=== PATIENT | female | born 1945 | race Caucasian/White ===

== ENCOUNTER 2019-07-30 02:16 | Inpatient (IN) | payer MEDICARE, OTHER ==
[~2019-07-30] VITALS: Ht 165.1 cm; Wt 69.6 kg
--- NOTE | ~2019-07-30 | HEMODYNAMI ---
PATIENT:GIOVANNY BERNAL MEDICAL RECORD: [id number] : 45 LOCATION:[facility].2120 ADMISSION DATE: 07/30/19 Generatedon:08/01/201910:05 Patient name: GIOVANNY BERNAL Patient #: [id number] SSN: [id number] : 1945 Date of study: 08/01/2019 Page: Of Hemodynamic Procedure Report Patient Data Patient Demographics Procedure consent was obtained First Name: GIOVANNY Gender: Female Last Name: GABE : 1945 Middle Initial: M Age: 74 year(s) Patient #: [id number] Race: SSN: [id number] Additional ID: [id number] Contact details [address]: [address] [place] [address] State: [place] City: [place] Zip code: [address] Past Medical History History of disease Date Diagnosis Comments CAD Allergies: No known allergies Admission Admission Data Admission Date: 07/30/2019 Admission Time: 19:54 Room #: D.2120 Height (in.): 64.96 BSA: 1.75 (m2) Height (cm.): 165 BMI: 24.98 (kg/m2) Weight (lbs.): 149.92 Weight (kg.): 68 Lab Results Lab Result Date: 08/01/2019 Lab Result Time: 0:00 Biochemistry Name Units Result Min Max BUN mg/dl 12 --(-*--)-- 7 18 Creatinine mg/dl 0.9 --(-*--)-- 0.6 1.3 eGFR ml/min 64.57184 *-(----)-- 90 120 NONAFRICAN CBC Name Units Result Min Max Hematocrit % 44 --(*---)-- 42 54 Hemoglobin g/dl 14.3 --(*---)-- 13.5 17.5 Procedure Procedure Types Cath Procedure Diagnostic Procedure LHC [facility] w/Coronaries Sedation Charges Moderate Sedation up to 15 minutes Procedure Description Procedure Date Procedure Date: 08/01/2019 Procedure Start Time: 9:51 Procedure End Time: 10:02 Procedure Staff Name Function Alok Olmos MD Performing Physician Farrah Milian RT Monitor Lisa Chappell RT Scrub Mirian Kyle RN Nurse Procedure Data Cath Procedure Fluoroscopy Diagnostic fluoroscopy Total fluoroscopy Time: 1.5 time: 1.5 min min Diagnostic fluoroscopy Total fluoroscopy dose: 327 dose: 327 mGy mGy Contrast Material Contrast Material Type Amount (ml) Isovue 300 62 Entry Location Entry Primary Successful Side Size Upsize Upsize Entry Closure Succes sful Closure Location (Fr) 1 (Fr) 2 (Fr) Remarks Device Remarks Femoral Right 5 Fr Exoseal artery Estimated blood loss: 10 ml Diagnostic catheters Device Type Used For End Catheter Placement MULTIPACK JL 4.0 5Fr Procedure catheter MULTIPACK 3DRC 5Fr Procedure catheter MULTIPACK Pigtail 5 Fr Ventriculography catheter Procedure Complications No complications Procedure Medications Medication Administration Route Dosage 0.9% NaCl I.V. 100 ml/hr Oxygen etCO2 Nasal cannula 2 l/min Lidocaine 2% added to field 20 Heparin Flush Bag added to field 2 bags (1000units/500ml NS) Versed I.V. 2 mg Fentanyl I.V. 50 mcg Fentanyl I.V. 50 mcg Hemodynamics Rest BSA: 1.75 (m2) HGB: 14.3 (g/dl) O2 Consumption: Estimated: 156.32 (ml/min) O2 Co nsumption indexed: Estimated:89.33 (ml/min/m) Heart Rate: 65 (bpm) Pressure Samples Time Site Value (mmHg) Purpose Heart Use Rate(bpm) 9:59 LV 146/-2,8 Snapshot 67 10:00 AO 141/48(87) Pullback 63 10:00 LV 154/-5,7 Pullback 63 Gradients Valve Time Site 1 Site 2 Mean SEP/DFP Peak To Heart Use (mmHg) (sec/min) Peak Rate (mmHg) (bpm) Aortic 10:00 LV AO 14 20 13 63 154/-5,7 141/48(87) Calculations Valve P-P Mean Valve Index Valve Source Name Gradient Area Flow (cm2) Aortic 13 14 13 14 Snapshots Pre Cath Intra NCS Post Cath Vital Signs Time Heart Resp SPO2 etCO2 NIBP (mmHg) Rhythm Pain Sedation Rate (ipm) (%) (mmHg) Status Level (bpm) 9:29:25 61 12 97 39.2 166/92(136) NSR 0 (11) 10(A) , No pain 9:33:33 60 13 98 41.5 161/81(124) NSR 0 (11) 10(A) , No pain 9:37:40 56 15 97 42 149/78(117) NSR 0 (11) 10(A) , No pain 9:41:44 65 14 92 21.5 144/82(123) NSR 0 (11) 10(A) , No pain 9:46:23 61 14 97 45.2 150/72(121) NSR 0 (11) 10(A) , No pain 9:50:31 57 16 97 38.5 146/75(91) NSR 0 (11) 10(A) , No pain 9:54:36 58 10 98 39.2 157/78(105) NSR 0 (11) 10(A) , No pain 9:58:44 58 10 96 43.7 160/76(95) NSR 0 (11) 10(A) , No pain 10:02:50 60 9 96 8.1 117/98(109) NSR 0 (11) 10(A) , No pain Medications Time Medication Route Dose Verified Delivered Reason Notes Effe ctiveness by by 9:29:01 0.9% NaCl I.V. 100 Alok Mirian used for ml/hr Nickolas Kyle caddy/caddie supervisor 9:29:07 Oxygen etCO2 2 Alok Mirian used for Nasal l/min Nickolas Kyle procedure cannula RN 9:29:11 Lidocaine 2% added 20ml Alok Alok for local to vial Nickolas Olmos MD anesthetic field 9:29:15 Heparin Flush added 2 Alok Alok used for Bag to bags Nickolas Olmos MD procedure (1000units/500ml field NS) 9:41:29 Versed I.V. 2 mg Alok Mirian for Nickolas Kyle sedation RN 9:41:39 Fentanyl I.V. 50 Alok Mirian for mcg Nickolas Kyle sedation RN 9:48:55 Fentanyl I.V. 50 Alok Mirian for mcg Nickolas Kyle sedation competitive intelligence manager Log Time Note 9:04:55 Informed consent obtained and on chart 9:06:41 Procedure Status Urgent Heart Cath (IP). 9:06:42 Time tracking: Regular hours (M-F 7:00 - 5:00) 9:06:44 Plan of Care:Hemodynamics will remain stable., Cardiac rhythm will remain stable., Comfort level will be maintained., Respiratory function will remain adequate., Patient/ family verbilizes understanding of procedure., Procedure tolerated without complication., Recovers from procedure without complications.. 9:06:46 Farrah Milian RT(R) sent for patient. Start room use. 9:06:49 H&P Date Dictated: 08/01/2019 ER History on chart.. 9:10:23 Patient allergic to No known allergies 9:11:06 Lab Result : BUN 12 mg/dl 9:11:06 Lab Result : Creatinine 0.9 mg/dl 9:11:06 Lab Result : eGFR NONAFRICAN 64.09227 ml/min 9:11:06 Lab Result : Hemoglobin 14.3 g/dl 9:11:06 Lab Result : Hematocrit 44 % 9:13:26 Patient Weight : 149.92 lbs 9:13:28 Patient Height : 64.96 inches 9:14:57 Risk of Mortality: .1 9:14:59 Risk of blood transfusion: .3 9:15:01 Risk of PARAM: .4 9:16:38 Patient received from Med II to CCL 2 Alert and oriented. Tansferred to table in Supine position. 9:16:39 Warm blankets applied, and gerri hugger turned on for patient comfort. 9:16:40 Correct patient and procedure confirmed by team. 9:16:40 ECG and BP/O2 sat monitors applied to patient. 9:19:30 Family in patients room. 9:19:33 Patient NPO since Midnight. 9:19:36 Is the patient allergic to Iodine/contrast media? No. 9:19:37 Was the patient premedicated? Yes 9:19:38 Is patient on blood thinner?Yes 9:19:48 ACC The patient was administered the following blood thiners within the last 24 hours: ACCPlavix 9:20:02 Patient diabetic? No. 9:20:07 Snore? Yes 9:20:10 Sleep apnea? No 9:20:12 Sticks out tongue? Yes 9:20:23 Patient pain scale 0/10 ?. 9:20:51 IV patent on arrival in right hand with 0.9% NaCl at KVO. 9:20:56 Lab results completed and on chart. 9:21:03 Stress Test: no; N/A ? 9:21:10 Right groin area was prepped with chlora-prep and draped in sterile fashion 9:21:11 Alarms reviewed by R. N. 9:21:12 Sharps counted by scrub and verified by R.N. 9:21:27 Use device set Femoral Dx 9:21:31 ACIST Syringe (90206) opened to sterile field. 9:21:31 Bag Decanter (2002S) opened to sterile field. 9:21:32 Medline Cath Pack ([id number]) opened to sterile field. 9:21:33 ACIST Hand Control (45902) opened to sterile field. 9:21:33 ACIST Manifold (05795) opened to sterile field. 9:21:34 DIAGNOSTIC Multipack 5Fr catheter set ([id number]) opened to sterile field. 9:21:35 Tegaderm 4 x 4 (1626W) opened to sterile field. 9:21:37 SHEATH 5FR [place] (LTR103) opened to sterile field. 9:21:37 EMERALD Guide Wire (156-012) opened to sterile field. 9:23:06 2) 60-89 Mildly reduced kidney function, and other findings (as for stage 1) point to kidney disease. 9:23:10 Maximum allowable contrast dose (3.7 X eGFR X 0.75)180 ml. 9:27:51 Sedation plan: IV Moderate Sedation Medication:Versed, Fentanyl 9:27:55 Vital chart was started 9:27:58 Baseline sample Acquired. 9:28:13 Rhythm: sinus rhythm 9:28:14 Full Disclosure recording started 9:29:01 0.9% NaCl 100 ml/hr I.V. was administered by Mirian Kyle RN; used for procedure; Verbal order read back and verified. 9:29:07 Oxygen 2 l/min etCO2 Nasal cannula was administered by Mirian Kyle RN; used for procedure; Verbal order read back and verified. 9:29:11 Lidocaine 2% 20ml vial added to field was administered by Alok Olmos MD; for local anesthetic; Verbal order read back and verified. 9:29:15 Heparin Flush Bag (1000units/500ml NS) 2 bags added to field was administered by Alok Olmos MD; used for procedure; Verbal order read back and verified. 9:33:00 Physician paged 9:40:25 Physician arrived 9:40:26 --------ALL STOP TIME OUT------ 9:40:27 Final Timeout: patient, procedure, and site verified with staff and physician. All members of the team are in agreement. 9:40:28 Right groin site verified by team. 9:40:32 Fire Safety Assessment: A--An alcohol-based skin anteseptic being used preoperatively., C--Open oxygen or nitrous oxide is being used., D--An ESU, laser, or fiber-optic light is being used. 9:40:37 Physical assessment completed. ASA score P 2 - A patient with mild systemic disease as per Alok Olmos MD. 9:41:29 Versed 2 mg I.V. was administered by Mirian Kyle RN; for sedation; Verbal order read back and verified. 9:41:39 Fentanyl 50 mcg I.V. was administered by Mirian Kyle RN; for sedation; Verbal order read back and verified. 9:42:02 Zero performed for pressure channel P1 9:48:55 Fentanyl 50 mcg I.V. was administered by Mirian Kyle RN; for sedation; Verbal order read back and verified. 9:51:46 Procedure started. 9:51:54 Local anesthetic to right femoral artery with Lidocaine 2% by Alok Olmos MD.INITIAL ACCESS ONLY 9:54:07 A 5 Fr sheath was inserted into the Right Femoral artery 9:54:14 J wire advanced. 9:54:23 A MULTIPACK JL 4.0 5Fr catheter was advanced over the wire and used for Procedure. 9:54:57 LCA angiography performed. 9:56:02 A MULTIPACK 3DRC 5Fr catheter was advanced over the wire and used for Procedure. 9:56:56 RCA angiography performed. 9:57:28 Catheter removed. 9:57:35 A MULTIPACK Pigtail 5 Fr catheter was advanced over the wire and used for Ventriculography. 9:58:03 Zero performed for pressure channel P1 9:58:07 Zero performed for pressure channel P1 9:58:14 Zero performed for pressure channel P1 9:59:35 EF : 60 % 10:00:05 EXOSEAL 5Fr (EX500) opened to sterile field. 10:00:08 Catheter removed. 10:00:18 Sheath removed intact; hemostasis achieved with Exoseal to the Right Femoral artery. 10:00:31 Procedure ended.(Physican Out) 10:00:35 Fluoroscopy time 01.50 minutes. 10:00:40 Flurop Dose total: 327 10:00:40 Fluoroscopy dose: 327 mGy 10:00:46 Dose Area Product 77503 mGy/cm. 10:00:57 Contrast amount:Isovue 300 62ml. 10:01:00 Maximum allowable dose exceeded? No. 10:01:01 Sharps counted by scrub and verified by R.N. 10:01:02 Insertion/operative site no bleeding no hematoma. 10:01:05 Post-op/insertion site Right Femoral artery dressed using a 4 x 4 and Tegaderm. 10:01:07 Post Procedure Pulses reassessed and unchanged 10:01:13 Post-procedure physical assessment completed. ASA score P 2 - A patient with mild systemic disease as per Alok Olmos MD. 10:01:16 Post procedure rhythm: unchanged. 10:01:19 Estimated blood loss: 10 ml 10:01:21 Post procedure instruction explained to patient.Patient verbalizes understanding. 10:01:49 Procedure type changed to Cath procedure, Diagnostic procedure, LHC, [facility] w/Coronaries, Sedation Charges, Moderate Sedation up to 15 minutes 10:01:51 Procedure and supply charges have been captured, reviewed, submitted and are correct. 10:02:09 Procedure Complication : No complications 10:02:12 Vital chart was stopped 10:02:13 [facility] Findings: mild to moderate CAD (<70%) 10:02:35 See physician's report for complete and final results. 10:02:36 Report given to Pre/Post Procedure Room. 10:02:41 Patient transfered to Pre/Post Procedure Room with Stretcher. 10:02:44 Procedure ended. 10:02:44 Full Disclosure recording stopped 10:02:50 End room use (Document Last) 10:03:10 End room use (Document Last) Device Usage Item Name Manufacture Quantity Catalog Hospital Part Current Minimal L ot# / Number Charge Number Stock Stock Serial# Code ACIST Acist 1 89637 343294 188577 533696 20 Syringe Medical (93089) Systems Inc Bag Microtek 1 723809 72244 995896 5 Decanter Medical Inc. () Medline Medline 1 [id number] 043557 08326 983612 5 Cath Pack ([id number]) ACIST Hand Acist 1 36324 677863 742980 141201 5 Control Medical (51542) Systems Inc ACIST Acist 1 94187 674546 708335 284102 5 Manifold Medical (58552) Systems Inc DIAGNOSTIC Cardinal 1 NV2217 638521 27529 997540 30 [employer] 5Fr catheter set (WD6509) Tegaderm 4 3M 1 1626W 777740 258853 793025 5 x 4 (1626W) SHEATH 5FR Terumo 1 [id number] 198787 669373 550398 5 [place] (YEI922) EMERALD Cardinal 1 502455 715706 583133 947011 5 Guide Wire Health (502-566) MULTIPACK Cardinal 1 772397 5 JL 4.0 5Fr Health catheter MULTIPACK Cardinal 1 016006 5 3DRC 5Fr Health catheter MULTIPACK Cardinal 1 159796 5 Pigtail 5 Health Fr catheter EXOSEAL 5Fr Cardinal 1 EX500 718611 215368 441349 10 (EX500) Health Signature Audit [place] Stage Time Signature Unsigned Intra-Procedure 08/01/2019 Farrah Milian 10:03:10 AM RT(R) Intra-Procedure 08/01/2019 Mirian Kyle 10:04:39 AM RN Intra-Procedure 08/01/2019 Alok Olmos MD 10:05:33 AM Signatures Performing Physician : Signature : Alok Olmos MD Date : Time : Monitor : Farrah Milian Signature : RT Date : Time : Nurse : Mirian Kyle RN Signature : Date : Time : [facility] [address] [facility] [place] [address]
[~2019-07-30 02:16] MED LIST: CELEXA20 MG PO; ECOTRIN325 MG PO; LIPITOR10 MG PO; PLAVIX75 MG PO; VASOTEC20 MG PO; ZIAC 10-6.25 MG1 TAB PO
[2019-07-30] MEDS ORDERED: BETAPACE 80 MG80 MG PO (02:38)
[2019-07-30] MEDS ORDERED: LIPITOR10 MG PO (02:40)
[2019-07-30] MEDS ORDERED: CELEXA10 MG PO (02:40)
[2019-07-30] MEDS ORDERED: BISOPROLOL FUMAR5 MG PO (02:40)
[2019-07-30 02:47] LABS: BASOPHILS 0.4 % (0-2); EOSINOPHILS 1.8 % (0-7); HEMATOCRIT 43.9 % (36.0-48.0); HEMOGLOBIN 14.3 g/dL (12-16); IMMATURE GRANULOCYTES 0.2 % (0-5); LYMPHOCYTES 22.6 % (15-50); MCH 28.9 pg (26.0-34.0); MCHC 32.6 g/dL (31.0-37.0); MCV 88.9 fL (80.0-100.0); MEAN PLATELET VOLUME 10.3 fL (7.4-10.4); MONOCYTES 6.1 % (2-11); NEUTROPHILS 68.9 % (40-80); PLATELET COUNT 200 10x3/uL (130-400); RBC 4.94 10x6/uL (4.00-5.40); RDW 13.5 % (11.5-14.5); WBC 10.1 10x3/uL (4.8-10.8)
[2019-07-30 02:57] LABS: INR 0.93 (0.85-1.17); PROTIME 12.4 SECONDS (11.6-15.0)
[2019-07-30 02:58] LABS: APTT 25.6 SECONDS (22.8-39.4)
[2019-07-30 02:59] LABS: BILIRUBIN NEGATIVE (NEGATIVE); GLUCOSE NEGATIVE (NEGATIVE); KETONE NEGATIVE (NEGATIVE); NITRITE NEGATIVE (NEGATIVE); UROBILINOGEN NORMAL (NORMAL)
[2019-07-30 03:01] LABS: CALC OSMOLALITY 289 mosm/kg (275-300); CALCIUM 9.4 mg/dL (8.5-10.1); CARBON DIOXIDE 31.5 mmol/L (21.0-32.0); CHLORIDE - SERUM 106 mmol/L (98-107); GLUCOSE 131 mg/dL (74-106); POTASSIUM - SERUM 3.1 mmol/L (3.5-5.1); SODIUM 144 mmol/L (136-145); UREA NITROGEN 15 mg/dL (7-18); eGFR NON AFRICAN AMERICAN 57 mL/min (90-120)
[2019-07-30 03:16] LABS: ALBUMIN 3.8 g/dL (3.4-5.0); ALKALINE PHOSPHATASE 91 U/L (30-120); ALT (SGPT) 22 U/L (10-68); BILIRUBIN - TOTAL 0.56 mg/dL (0.2-1.3); CKMB 1.9 U/L (0.0-3.6); CREATINE KINASE 201 UL (21-215); MAGNESIUM - SERUM 2.1 mg/dL (1.8-2.4); PROTEIN - SERUM 7.9 g/dL (6.4-8.2); TROPONIN-I 0.056 ng/mL (0.000-0.060)
--- NOTE | 2019-07-30 05:53 | NUR ---
PT ARRIVED TO ROOM VIA W/C, AMBULATORY. NO C/O VOICED. DINES CHEST PAIN OR DISSINESS. EDUCATED USE OF CALL LIGHT FOR ASSISTANCE. WILL HENNY.
[2019-07-30] MEDS ORDERED: VASOTEC20 MG PO (05:59)
[2019-07-30] MEDS ORDERED: BAYER CHEWABLE81 MG PO (06:03)
[2019-07-30 06:28] VITALS: BP 144/73; BMI 24.8
--- NOTE | 2019-07-30 07:15 | NUR ---
RECEIVED PT IN BED EYES CLOSED RESP UNLABORED SKIN W/D COLOR WNL NAD NOTED DAUGHTER AT BEDSIDE
[2019-07-30 08:21] VITALS: BMI 24.7
[2019-07-30 09:44] VITALS: BP 131/62
[2019-07-30 10:05] LABS: CKMB 1.5 U/L (0.0-3.6); CREATINE KINASE 155 UL (21-215); TROPONIN-I 0.051 ng/mL (0.000-0.060)
[2019-07-30 12:54] VITALS: BP 136/57
[2019-07-30 16:00] VITALS: BP 115/43
[2019-07-30 20:00] VITALS: BP 136/61
--- NOTE | 2019-07-30 22:54 | NUR ---
PTS DAUGHTER CALLED FOR ASSISTANCE. STATED MOM WAS HAVING ANOTHER "EPISODE". PT APPEARED FLUSHED C/O NAUSEA. HEART RATE WENT FROM 40'S NORMAL SINUS TO 90'S NORMAL SINUS. PROVIDED ZOFRAN PER PRN ORDER. NO DISTRESS OBSERVED. WILL CTM.
[2019-07-31] VITALS: BP 173/97
--- NOTE | 2019-07-31 00:37 | NUR ---
PTS DAUGHTER STATES THAT PT IS HAVING ANOTHER SPELL, PT FLUSHED. BP 173/97, 73 NORMAL SINUS, NO OTHER NEEDS EXPRESSED. WILL CTM.
[2019-07-31 04:00] VITALS: BP 154/73
[2019-07-31 04:47] LABS: BASOPHILS 0.4 % (0-2); EOSINOPHILS 1.4 % (0-7); HEMATOCRIT 40.8 % (36.0-48.0); IMMATURE GRANULOCYTES 0.3 % (0-5); LYMPHOCYTES 25.3 % (15-50); MCH 28.8 pg (26.0-34.0); MCHC 31.9 g/dL (31.0-37.0); MCV 90.3 fL (80.0-100.0); MEAN PLATELET VOLUME 10.6 fL (7.4-10.4); MONOCYTES 6.8 % (2-11); NEUTROPHILS 65.8 % (40-80); PLATELET COUNT 175 10x3/uL (130-400); RBC 4.52 10x6/uL (4.00-5.40); RDW 13.7 % (11.5-14.5); WBC 7.8 10x3/uL (4.8-10.8)
[2019-07-31 04:58] LABS: ANION GAP 8.4 mmol/L (8-16); CALCIUM 9.1 mg/dL (8.5-10.1); CARBON DIOXIDE 29.4 mmol/L (21.0-32.0); MAGNESIUM - SERUM 2.1 mg/dL (1.8-2.4)
[2019-07-31 05:03] LABS: POTASSIUM - SERUM 4.8 mmol/L (3.5-5.1)
[2019-07-31 08:44] VITALS: BP 163/64
[2019-07-31 10:12] LABS: BASOPHILS 0.3 % (0-2); EOSINOPHILS 1.2 % (0-7); HEMOGLOBIN 14.3 g/dL (12-16); IMMATURE GRANULOCYTES 0.1 % (0-5); LYMPHOCYTES 22.7 % (15-50); MCH 29.4 pg (26.0-34.0); MCHC 32.5 g/dL (31.0-37.0); MCV 90.3 fL (80.0-100.0); MEAN PLATELET VOLUME 10.6 fL (7.4-10.4); MONOCYTES 5.3 % (2-11); NEUTROPHILS 70.4 % (40-80); PLATELET COUNT 190 10x3/uL (130-400); RBC 4.87 10x6/uL (4.00-5.40); RDW 13.6 % (11.5-14.5); WBC 7.5 10x3/uL (4.8-10.8)
[2019-07-31 10:17] LABS: ANION GAP 9.9 mmol/L (8-16); CALCIUM 9.5 mg/dL (8.5-10.1); CARBON DIOXIDE 28.4 mmol/L (21.0-32.0); CHOL - HDL RATIO 2.4 ratio (2.3-4.1); CREATININE - SERUM 0.9 mg/dL (0.6-1.3); LDL-HDL RATIO 1.1 ratio (1.5-3.5); POTASSIUM - SERUM 4.3 mmol/L (3.5-5.1)
[2019-07-31 11:41] VITALS: BP 126/59
--- NOTE | 2019-07-31 11:57 | NUR ---
CONSENTS SIGNED FOR [facility] SCHEDULED FOR [place] AM.
[2019-07-31 15:24] VITALS: BP 129/56
--- NOTE | 2019-07-31 19:36 | NUR ---
REPORT RECEIVED. BEDSIDE SHIFT REPORT COMPLETE. DAUGHTER AT BEDSIDE. RR EVEN AND UNLABORED. NO DISTRESS OBSERVED. NO NEEDS EXPRESSED. CALL LIGHT IN REACH. WILL CPOC.
[2019-07-31 20:30] VITALS: BP 162/69
--- NOTE | 2019-08-01 03:24 | NUR ---
PT C/O OF HAVING AN EPISODE. PT FLUSHED AND C/O "BURNING" HEART RATE 103 ST. NO OTHER ISSUES NOTED. WILL CPOC.
[2019-08-01 04:30] VITALS: BP 177/71
--- NOTE | 2019-08-01 07:10 | NUR ---
REPORT RECEIVED FROM DUMPER OPERATOR AND PATIENT CARE ASSUMED. PATIENT LAYING IN BED AWAKE, ALERT AND ORIENTED X 4. PATIENT IS NPO AWAINTING HEART CATH. PATIENT IS STABLE AND VSS. PATIENT DENIES ANY NEEDS OR PAIN. DTR AT BS. WILL CONTINUE WITH PLAN OF CARE. SR UP X 2 BED IN LOW POSITION AND CALL LIGHT IN REACH.
[2019-08-01 07:40] VITALS: BP 157/67
[2019-08-01 08:04] LABS: BASOPHILS 0.4 % (0-2); EOSINOPHILS 1.6 % (0-7); HEMATOCRIT 42.4 % (36.0-48.0); HEMOGLOBIN 13.7 g/dL (12-16); IMMATURE GRANULOCYTES 0.1 % (0-5); LYMPHOCYTES 22.3 % (15-50); MCH 28.7 pg (26.0-34.0); MCHC 32.3 g/dL (31.0-37.0); MCV 88.9 fL (80.0-100.0); MONOCYTES 5.4 % (2-11); NEUTROPHILS 70.2 % (40-80); PLATELET COUNT 196 10x3/uL (130-400); RBC 4.77 10x6/uL (4.00-5.40); RDW 13.3 % (11.5-14.5)
[2019-08-01 08:18] LABS: ANION GAP 10.2 mmol/L (8-16); CALCIUM 9.3 mg/dL (8.5-10.1); CARBON DIOXIDE 28.7 mmol/L (21.0-32.0); CREATININE - SERUM 0.9 mg/dL (0.6-1.3); MAGNESIUM - SERUM 2.3 mg/dL (1.8-2.4); POTASSIUM - SERUM 3.9 mmol/L (3.5-5.1)
--- NOTE | 2019-08-01 09:30 | NUR ---
PATIENT IS STABLE AND VSS. DTR AT PATIENT DENIES ANY NEEDS OR PAIN. PATIENT PREOP GIVEN PER APR. PATIENT TO EMBOSSING PRESS OPERATOR VIA HOSPITAL BED ACCOMPANIED BY EMBOSSING PRESS OPERATOR STAFF.
--- NOTE | 2019-08-01 10:50 | NUR ---
PATIENT BACK TO ROOM VIA HOSPITAL BED ACCOMPANIED BY HOSPITAL STAFF. PATIENT LAYING FLAT IN BED ON BACK WITH LEGS STRAIGHT BREATHING EVENLY WITH EYES CLOSED. VSS. RT GROIN DRSG C/D/I. NO SIGN OF BLEEDING, BRUISING OR HEMATOMA. FREQUENT VITALS IN PLACE. DTR AT BS. WILL CONTINUE TO MONITOR. SR UP X 2 BED IN LOW POSITION AND CALL LIGHT IN REACH.
[2019-08-01 11:37] VITALS: BP 125/64
[2019-08-01 14:54] VITALS: BP 123/65
--- NOTE | 2019-08-01 16:03 | MORECARE ---
CASE MANAGEMENT DISCHARGE SUMMARY PATIENT: GIOVANNY BERNAL UNIT: [id number] ADM DATE: 07/30/19 AGE: 74 : 45 SEX: F ROOM/BED: D.0 AUTHOR: JUAN ANTONIO MAHER PHYSICIAN: REFERRING PHYSICIAN: RORY BOOTHE MD DATE OF SERVICE: 08/01/19 Discharge Plan Patient Name: GIOVANNY BERNAL [facility] [facility] 1945 Planned Disposition: Home Anticipated Discharge Date: Discharge Date: Expected LOS: Initial Reviewer: [email or web address] Initial Review Date: 07/30/2019 Generated: 08/01/19 5:03 pm DCPIA - Discharge Planning Initial Assessment Updated by [email or web address]: Luda Ibarra on 08/01/19 4:03 pm * Is the patient Alert and Oriented? Yes * How many steps to enter\exit or inside your home? 0/0 * PCP PRECIOUS * Pharmacy [facility] in [place] * Preadmission Environment Home with Family * ADLs Independent * Equipment None * List name and contact numbers for known caregivers / representatives who currently or will assist patient after discharge: [facility] [phone] [place] [phone] * Verbal permission to speak to the caregivers and representatives has been obtained from the patient. Yes * Community resources currently utilized None * Additional services required to return to the preadmission environment? No * Can the patient safely return to the preadmission environment? Yes * Has this patient been hospitalized within the prior 30 days at any hospital? No Patient Name: GIOVANNY BERNAL Page 50250 at 1603 All edits/amendments must be made on the electronic document DICTATION DATE: 08/01/19 1603 CAT BREEDER: JASON 08/01/19 1603 RPT#: [id number] DC DATE: STATUS: ADM IN [facility] [address] [place] [address] END OF REPORT
--- NOTE | 2019-08-01 16:12 | MORECARE ---
CASE MANAGEMENT DISCHARGE SUMMARY PATIENT: GIOVANNY BERNAL UNIT: [id number] ADM DATE: 07/30/19 AGE: 74 : 45 SEX: F ROOM/BED: D.3421 AUTHOR: NIKA,DOC PHYSICIAN: REFERRING PHYSICIAN: RORY BOOTHE MD DATE OF SERVICE: 08/01/19 Discharge Plan Patient Name: GIOVANNY BERNAL Facility: [facility]:[place] : 1945 Planned Disposition: Home Anticipated Discharge Date: Discharge Date: Expected LOS: Initial Reviewer: [email or web address] Initial Review Date: 07/30/2019 Generated: 08/01/19 5:12 pm Comments DCP- Discharge Planning Updated by [email or web address]: Luda Ibarra on 08/01/19 3:[address] Patient Name: GIOVANNY BERNAL Admission Status: ER Accout number: [id number] Admission Date: 07-30-2019 : 1945 Admission Diagnosis: Attending: NICOLETTE Current LOS: 2 Anticipated DC Date: Planned Disposition: Home Primary Insurance: MEDICARE A & B Discharge Planning Comments:CM met with patient to complete initial dc planning assessment. CM educated patient on the CM role and verbal consent given by patient to complete assessment. CM verified patient's address, phone number, and emergency contact phone numbers. Patient lives at home with her . States she has been independent with all of her ADL'S. At discharge patient plans to return home and feels this is a safe discharge. CM discussed availability of home health, rehab services, and medical equipment. Patient denied known discharge needs at this time. ZUNILDA declination signed. Transportation provider at discharge will be a family member. CM will continue to follow and will assist as needed with dc plans/needs. Manager Of Internal Audit: Luda Ibarra MSN,RN,CM DCPIA - Discharge Planning Initial Assessment Updated by [email or web address]: Luda Ibarra on 08/01/19 4:03 pm * Is the patient Alert and Oriented? Yes * How many steps to enter\exit or inside your home? 0/0 * PCP PRECIOUS * [facility] [place] * Preadmission Environment Home with Family * ADLs Independent * Equipment None * List name and contact numbers for known caregivers / representatives who currently or will assist patient after discharge: Alexandra dtrei [phone] [place] [phone] * Verbal permission to speak to the caregivers and representatives has been obtained from the patient. Yes * Community resources currently utilized None * Additional services required to return to the preadmission environment? No * Can the patient safely return to the preadmission environment? Yes * Has this patient been hospitalized within the prior 30 days at any hospital? No Last DP export: 08/01/19 3:03 pm Patient Name: GIOVANNY BERNAL Page 53973 at 1612 All edits/amendments must be made on the electronic document DICTATION DATE: 08/01/191611 VP ACCOUNT DIRECTOR: JASON 08/01/191611 RPT#: [id number] DC DATE: STATUS: ADM IN [facility] [address] [place] [address] END OF REPORT
--- NOTE | 2019-08-01 19:13 | NUR ---
RECEIVED BEDSIDE REPORT. PATIENT IS ALERT AND ORIENTED, RESTING COMFORTABLY IN BED. RESPIRATIONS ARE EVEN AND UNLABORED. NO S/S OF DISTRESS. NO C/O PAIN. CALL LIGHT WITHIN REACH. WILL CPOC.
[2019-08-01 19:52] VITALS: BP 139/71
[2019-08-01 23:58] VITALS: BP 149/76
[2019-08-02 04:23] VITALS: BP 142/75
[2019-08-02 06:31] LABS: BASOPHILS 0.4 % (0-2); HEMATOCRIT 38.7 % (36.0-48.0); HEMOGLOBIN 12.5 g/dL (12-16); IMMATURE GRANULOCYTES 0.1 % (0-5); MCH 28.9 pg (26.0-34.0); MCHC 32.3 g/dL (31.0-37.0); MCV 89.4 fL (80.0-100.0); MEAN PLATELET VOLUME 10.3 fL (7.4-10.4); MONOCYTES 7.6 % (2-11); NEUTROPHILS 65.9 % (40-80); PLATELET COUNT 163 10x3/uL (130-400); RBC 4.33 10x6/uL (4.00-5.40); RDW 13.4 % (11.5-14.5)
[2019-08-02 06:49] LABS: ANION GAP 6.7 mmol/L (8-16); CALCIUM 8.5 mg/dL (8.5-10.1); CARBON DIOXIDE 31.4 mmol/L (21.0-32.0); MAGNESIUM - SERUM 2.1 mg/dL (1.8-2.4); POTASSIUM - SERUM 4.1 mmol/L (3.5-5.1)
--- NOTE | 2019-08-02 07:10 | NUR ---
REPORT RECEIVED FROM TWISTHAND AND PATIENT CARE ASSUMED.PATIENT LAYING IN BED ON BACK AWAKE, ALERT AND ORIENTED X 4. PATIENT IS STABLE AND VSS. PATIENT DENIES ANY NEEDS OR PAIN. WILL CONTINUE WITH PLAN OF CARE. SR UP X 2 BED IN LOW POSITION AND CALL LIGHT IN REACH.
[2019-08-02 09:04] VITALS: BP 169/62
--- NOTE | 2019-08-02 10:48 | NUR ---
PATIENT RESTING COMFORTABLY IN BED WATCHING TV. PATIENT IS STABLE AND VSS. PATIENT DENIES ANY NEEDS OR PAIN. WILL CONTINUE TO MONITOR. SR UPX 2 BED IN LOW POSITION AND CALL LIGHT IN REACH.
[2019-08-02 13:19] VITALS: BP 159/64
--- NOTE | 2019-08-02 13:48 | NUR ---
Nutrition Follow-up: Good appetite. Diet: Cardiac Wt: 153.2# (08/01); 148.9# (07/29) Last BM: 07/30 Labs noted: Glu 108 Meds noted: Protonix, electrolyte protocol -Monitor wt; noted daily wts ordered. -RD following.
--- NOTE | 2019-08-02 15:45 | MORECARE ---
CASE MANAGEMENT DISCHARGE SUMMARY PATIENT: GIOVANNY BERNAL UNIT: [id number] ADM DATE: 07/30/19 AGE: 74 : 45 SEX: F ROOM/BED: D.8289 AUTHOR: NIKA,DOC PHYSICIAN: REFERRING PHYSICIAN: RORY BOOTHE MD DATE OF SERVICE: 08/02/19 Discharge Plan Patient Name: GIOVANNY BERNAL Facility: [facility]:[place] : 1945 Planned Disposition: Home Anticipated Discharge Date: Discharge Date: Expected LOS: 0 Initial Reviewer: [email or web address] Initial Review Date: 07/30/2019 Generated: 08/02/19 4:44 pm Comments DCP- Discharge Planning Updated by [email or web address]: Luda Ibarra on 08/02/19 2:[address] Patient Name: GIOVANNY BERNAL Encounter No: [id number] : 1945 Primary Insurance: MEDICARE A & B Anticipated DC Date: Planned Disposition: Home External Planned Provider: : DCP follow-up note: CM met with pt and daughter to discuss final dc plan. Patient states she is ready to dc, and denies any additional needs. DC IMM delivered, explained, signed by the patient, and placed in his chart. Signed form also left with patient. Patient and family in agreement with discharge plan. No changes to plan. Case management will follow and assist as needed. Luda Ibarra MSN,RN,CM DCP- Discharge Planning Updated by [email or web address]: Luda Ibarra on 08/01/19 3:[address] Patient Name: GIOVANNY BERNAL Admission Status: ER Accout number: [id number] Admission Date: 07-30-2019 : 1945 Admission Diagnosis: Attending: NICOLETTE Current LOS: 2 Anticipated DC Date: Planned Disposition: Home Primary Insurance: MEDICARE A & B Discharge Planning Comments:CM met with patient to complete initial dc planning assessment. CM educated patient on the CM role and verbal consent given by patient to complete assessment. CM verified patient's address, phone number, and emergency contact phone numbers. Patient lives at home with her . States she has been independent with all of her ADL'S. At discharge patient plans to return home and feels this is a safe discharge. CM discussed availability of home health, rehab services, and medical equipment. Patient denied known discharge needs at this time. ZUNILDA declination signed. Transportation provider at discharge will be a family member. CM will continue to follow and will assist as needed with dc plans/needs. Environmental Manager: Luda Ibarra MSN,RN,CM DCPIA - Discharge Planning Initial Assessment Updated by [email or web address]: Luda Ibarra on 08/01/19 4:03 pm * Is the patient Alert and Oriented? Yes * How many steps to enter\exit or inside your home? 0/0 * PCP PRECIOUS * Pharmacy [facility] in [place] * Preadmission Environment Home with Family * ADLs Independent * Equipment None * List name and contact numbers for known caregivers / representatives who currently or will assist patient after discharge: Alexandra dtrei [phone] [place] [phone] * Verbal permission to speak to the caregivers and representatives has been obtained from the patient. Yes * Community resources currently utilized None * Additional services required to return to the preadmission environment? No * Can the patient safely return to the preadmission environment? Yes * Has this patient been hospitalized within the prior 30 days at any hospital? No Coverage Notice Reviewer: [id number] - Luda Ibarra Notice Issued Date-Time: 08/02/2019 14:57 Notice Type: IM Discharge Notice Notice Delivered To: Patient Relationship to Patient: Associate Data Scientist Name: Delivery Method: HAND - Hand Delivered Pretty Days: Prior Verbal Notification: Recipient Understood Notice: Yes Recipient Signature: Yes Med Rec Note Co-signed by Attending: Coverage Notice Comment: DC IMM delivered, explained, signed by the patient, and placed in his chart. Signed form also left with patient Last DP export: 08/01/19 3:12 pm Patient Name: GIOVANNY BERNAL Page [id number] at [id number] All edits/amendments must be made on the electronic document DICTATION DATE: 08/02/19 1541 FOOD SELECTOR: JASON 08/02/19 1545 RPT#: [id number] DC DATE: STATUS: ADM IN [facility] [address] [id number] END OF REPORT
[2019-08-03 11:30] VITALS: Ht 165.1 cm; Wt 69.6 kg
== END 2019-08-02 17:05 | disposition home or self-care (01) | DRG 287 ==
LOC: D.ER 02:16 → D.M2 04:22 → OBSVTIME 04:22 → D.M2 19:54
PROVIDERS: Emergency Medicine; Family Medicine; Internal Medicine Cardiovascular Disease; ADMIT Family Medicine; ATTEND Family Medicine
PROC: B2151ZZ Fluoroscopy of Left Heart using Low Osmolar Contrast (ICD-10-PCS; 2019-08-01)
PROC: 4A023N7 Measurement of Cardiac Sampling and Pressure, Left Heart, Percutaneous Approach (ICD-10-PCS; 2019-08-01)
PROC: B2111ZZ Fluoroscopy of Multiple Coronary Arteries using Low Osmolar Contrast (ICD-10-PCS; principal; 2019-08-01 09:00)
DX: R00.1 Bradycardia, unspecified (principal); I25.110 Atherosclerotic heart disease of native coronary artery with unstable angina pectoris; I65.22 Occlusion and stenosis of left carotid artery; I48.0 Paroxysmal atrial fibrillation; I10 Essential (primary) hypertension; E87.6 Hypokalemia; T44.7X5A Adverse effect of beta-adrenoreceptor antagonists, initial encounter